=== PATIENT | female | born 1985 | race Two or more races ===

== ENCOUNTER 2020-08-14 07:50 | Inpatient (IN) | payer MEDICAID, OTHER ==
[~2020-08-14] VITALS: Ht 147.3 cm; Wt 98.3 kg
[2020-08-14] MEDS ORDERED: SODIUM CHLORIDE 0.9% 1,000 ML IV ONE ×2 (08:00)
[2020-08-14] MEDS ORDERED: InsuLIN REG 1unit/0.01ml Soln (100units/ml) IV ONE (08:15)
[2020-08-14 09:09] LABS: Albumin 2.9 g/dL (3.4-5.0); Anion Gap 26 (5-15); Blood Urea Nitrogen 47 mg/dL (7-18); Calcium 8.7 mg/dL (8.5-10.1); Carbon Dioxide 15 mmol/L (21-32); Chloride 96 mmol/L (98-107); Potassium 4.6 mmol/L (3.5-5.1); Sodium 137 mmol/L (136-145)
[2020-08-14 09:11] LABS: Basophils # (auto) 0 10 ^3/uL (0-0.2); Basophils % (auto) 0.2 % (0.0-2.0); Eosinophils # (auto) 0 10 ^3/uL (0-0.8); Hemoglobin 15.2 g/dL (12.2-16.2); Lymphocytes # (auto) 0.4 10 ^3/uL (0.4-5.4); Mean Corpuscular Hemoglobin 29.1 pg (28.0-32.0); Monocytes # (auto) 1.1 10 ^3/uL (0-1.3)
[2020-08-14 09:12] LABS: Alanine Aminotransferase 21 U/L (13-56); Alkaline Phosphatase 204 U/L (45-117); Aspartate Aminotransferase 15 U/L (15-37); Bilirubin, Total 0.5 mg/dL (0.2-1.0); Eosinophils % (auto) 0.1 % (0.0-7.0); GFR African American 23 mL/min; GFR Non-African American 19 mL/min; Hematocrit 52.4 % (36.0-46.0); Lymphocytes % (auto) 2.2 % (10.0-50.0); Mean Corpuscular Hgb Conc. 28.9 g/dL (32.0-36.0); Mean Corpuscular Volume 100.6 fL (80.0-100.0); Monocytes % (auto) 7.1 % (0.0-12.0); Neutrophils # (auto) 14.2 10 ^3/uL (1.6-8.6); Neutrophils % (auto) 90.4 % (37.0-80.0); Nucleated Red Blood Cells % 0.1 %; Platelet Count (auto) 364 10^3/uL (140-450); Red Blood Cells 5.21 10^6/uL (4.0-5.20); Red Cell Distribution Width 16.4 % (11.8-14.3); Total Protein 8.4 g/dL (6.4-8.2); White Blood Cell 15.7 10^3/uL (4.4-10.8)
[2020-08-14 09:33] LABS: Urine Bacteria FEW /hpf (None Seen); Urine Blood 1+ /uL (Negative); Urine Mucus FEW (None Seen); Urine WBC 3 /hpf (0 - 5)
[2020-08-14] MEDS ORDERED: cefTRIAXone 1GM/50ML D5W 50 ML IV ONE (09:45)
[2020-08-14 09:50] LABS: BUN/Creatinine Ratio 15.3
[2020-08-14 09:51] LABS: Glucose 1308 mg/dL (74-106)
[2020-08-14] MEDS ORDERED: DEXTROSE (50%) 50ML SYRG IV PRN (10:00)
[2020-08-14] MEDS ORDERED: InsuLIN R (HUMAN) 100 UNITS in SODIUM CHL 0.9% 99 ML IV SCH (10:00)
[2020-08-14] MEDS ORDERED: INSULIN LANTUS (GLARGINE) 1 /0.01ml (100units/ml) SC ONE (10:00)
[2020-08-14 10:27] LABS: Lactic Acid w/Reflex 3.5 mmol/L (0.4-2.0)
[2020-08-14] MEDS: ACCU-CHEK COMFORT CURVE STRIP VI SCH ×9 (10:34→22:42)
[2020-08-14] MEDS ORDERED: diphenhdrAMINE HCL 50 MG/1 ML VL IV ONE (11:15)
[2020-08-14] MEDS: InsuLIN R (HUMAN) 100 UNITS in SODIUM CHL 0.9% 99 ML IV SCH ×3 (12:02→15:00)
[2020-08-14 12:45] LABS: BUN/Creatinine Ratio 17.2; Potassium 4.6 mmol/L (3.5-5.1)
[2020-08-14] MEDS ORDERED: LORazepam 2MG/ML-1ML VIAL IV ONE (12:45)
[2020-08-14] MEDS ORDERED: NITROGLYCERIN 0.4 MG SL TAB SL PRN (13:30)
[2020-08-14] MEDS ORDERED: LACTATED RINGER'S 1,000 ML IV ONE (13:30)
[2020-08-14 14:43] LABS: Magnesium 3.5 mg/dL (1.6-2.6); Phosphorus 2.8 mg/dL (2.5-4.90)
[2020-08-14] MEDS ORDERED: NOREPINEPHRINE 8 MG/250ML KIT 250 ML IV SCH (15:00)
[2020-08-14] MEDS: NOREPINEPHRINE 8 MG/250ML KIT 250 ML IV SCH (15:15)
[2020-08-14] MEDS: LACTATED RINGER'S 1,000 ML IV SCH ×2 (15:30→21:51)
[2020-08-14] MEDS: MORPHINE SULF INJ 2 MG/ML SYRINGE 1ML IV PRN (16:33)
[2020-08-14] MEDS ORDERED: PIPERACILLIN-TAZOB 2.25GM 50 ML IV SCH (18:00)
[2020-08-14 18:43] LABS: BUN/Creatinine Ratio 16.3; Calcium 9.1 mg/dL (8.5-10.1); Potassium 3.5 mmol/L (3.5-5.1)
[2020-08-14] MEDS: PIPERACILLIN-TAZOB 2.25GM 50 ML IV SCH (20:20)
[2020-08-14] MEDS: LINEZOLID 600MG/300ML 300 ML IV SCH (22:36)
[2020-08-15] VITALS (44 sets, daily range): BP systolic 79–133; BP diastolic 55–91
[2020-08-15] MEDS: ACCU-CHEK COMFORT CURVE STRIP VI SCH ×14 (00:05→19:48)
[2020-08-15] MEDS: PIPERACILLIN-TAZOB 2.25GM 50 ML IV SCH ×4 (00:06→18:18)
[2020-08-15] MEDS ORDERED: InsuLIN REG 1unit/0.01ml Soln (100units/ml) ONE (02:23)
[2020-08-15] MEDS: LACTATED RINGER'S 1,000 ML IV SCH ×3 (05:33→20:50)
[2020-08-15 08:24] LABS: Albumin 2.4 g/dL (3.4-5.0); BUN/Creatinine Ratio 17.7; Calcium 8.6 mg/dL (8.5-10.1); Magnesium 2.4 mg/dL (1.6-2.6); Potassium 3.3 mmol/L (3.5-5.1)
[2020-08-15 08:34] LABS: Bilirubin, Total 0.3 mg/dL (0.2-1.0); Phosphorus 1.8 mg/dL (2.5-4.90); Total Protein 6.8 g/dL (6.4-8.2)
--- NOTE | 2020-08-15 09:30 | NUR ---
REPORT RECEIVED FROM WAQAR GAMBLE RN. PATIENT TO GO TO ROOM 108 ICU. PER WAREHOUSE DISTRIBUTION MANAGER AND ICU DIRECTOR PATIENT MOTHER APPROVED TO STAY WITH PATIENT DURING STAY.
[2020-08-15] MEDS: INSULIN LANTUS (GLARGINE) 1 /0.01ml (100units/ml) SC SCH (10:00)
--- NOTE | 2020-08-15 10:00 | NUR ---
Pt being admitted to ICU PAUL GONZALES admitted to ICU via gurney on engine monitor, and portable 02. Patient transferred to bed, connected to ICU monitoring and oxygen, and weighed by bedscale. Patient and mother oriented to Sneha Elias, primary RN, unit, room, bed, and unit policies regarding patient care and visiting hours. All questions and concerns addressed, patient verbalized understanding. Bed in low position, call light in reach. Will continue to monitor.
[2020-08-15] MEDS: ENOXAPARIN SOD 30 MG/0.3 ML SYRINGE SC SCH (10:43)
[2020-08-15] MEDS: LINEZOLID 600MG/300ML 300 ML IV SCH ×2 (10:45→21:59)
[2020-08-15 10:58] LABS: Basophils # (auto) 0 10 ^3/uL (0-0.2); Basophils % (auto) 0.2 % (0.0-2.0); Eosinophils # (auto) 0 10 ^3/uL (0-0.8); Hematocrit 43.6 % (36.0-46.0); Hemoglobin 14.1 g/dL (12.2-16.2); Lymphocytes # (auto) 0.8 10 ^3/uL (0.4-5.4); Lymphocytes % (auto) 5.5 % (10.0-50.0); Mean Corpuscular Hemoglobin 29.3 pg (28.0-32.0); Mean Corpuscular Hgb Conc. 32.3 g/dL (32.0-36.0); Mean Corpuscular Volume 90.7 fL (80.0-100.0); Monocytes # (auto) 0.9 10 ^3/uL (0-1.3); Monocytes % (auto) 6.4 % (0.0-12.0); Neutrophils # (auto) 12.6 10 ^3/uL (1.6-8.6); Neutrophils % (auto) 87.9 % (37.0-80.0); Red Blood Cells 4.81 10^6/uL (4.0-5.20); White Blood Cell 14.4 10^3/uL (4.4-10.8)
[2020-08-15 11:08] LABS: Platelet Count (auto) 121 10^3/uL (140-450)
[2020-08-15] MEDS: NOREPINEPHRINE 8 MG/250ML KIT 250 ML IV SCH (15:00)
[2020-08-15] MEDS: InsuLIN R (HUMAN) 100 UNITS in SODIUM CHL 0.9% 99 ML IV SCH (15:30)
[2020-08-15] MEDS ORDERED: POTASSIUM CHLORIDE 20 MEQ, LIDOCAINE 1% (LOCAL ANESTH.) 2 ML in SODIUM CHL 0.9% 100 ML IV ONE (18:30)
--- NOTE | 2020-08-15 18:32 | NUR ---
DR HAGER AT BEDSIDE TO ASSESS PATIENT AND DISCUSS PLAN OF CARE. PER MD STOP INSULIN DRIP AND START ON Q4H MODERATE SCALE. PER MD MAY START PATIENT ON DIET, MD MADE AWARE OF PATIENTS POTASSIUM ALL ORDERS NOTED IN CHART. PER MD IF LABS AT 2200 ARE GOOD PATIENT CAN DOWNGRADE TO TELEMETRY FLOOR.
[2020-08-15] MEDS ORDERED: DEXTROSE (50%) 50ML SYRG IV PRN (19:15)
--- NOTE | 2020-08-15 19:36 | NUR ---
OPENING NOTE RECEIVED REPORT AND ASSUMED CARE OF PT. PT IS RESTING IN BED WITH TWO FAMILY MEMBERS AT BEDSIDE. LR RUNNING AT 125 ML/HR. NASAL CANNULA APPLIED AT 2L. VITAL SIGNS STABLE WITH NO DISTRESS OBSERVED. WOLFF CATHETER IN PLACE AND DRAINING APPROPRIATELY. EDUCATED PT AND FAMILY ON PLAN OF CARE FOR THIS EVENING, MEDICATIONS, AND DISEASE PROCESS. VERBALIZED UNDERSTANDING. WILL CONTINUE TO MONITOR AND ASSESS PT.
[2020-08-15] MEDS: ONDANSETRON HCL 4 MG/2 ML VIAL IV PRN (19:46)
[2020-08-15] MEDS: InsuLIN REG 1unit/0.01ml Soln (100units/ml) SC SCH ×2 (19:48→23:50)
[2020-08-15 22:33] LABS: BUN/Creatinine Ratio 18.5; Potassium 3.4 mmol/L (3.5-5.1)
--- NOTE | 2020-08-15 23:30 | NUR ---
TELE BED ASSIGNMENT RECEIVED PT GOING TO ROOM 202. CALLED FOR TELEMETRY BOX.
[2020-08-16] VITALS (8 sets, daily range): BP systolic 91–113; BP diastolic 54–67
[2020-08-16] MEDS: ACCU-CHEK COMFORT CURVE STRIP VI SCH ×6 (00:09→20:00)
[2020-08-16] MEDS: PIPERACILLIN-TAZOB 2.25GM 50 ML IV SCH ×2 (00:10→05:47)
--- NOTE | 2020-08-16 01:14 | NUR ---
REPORT GIVEN TO PARIS GRAHAM. Addendum: 08/16/20 at 0153 by TODD FIGUEROA RN SANTOS LAZCANO.
[2020-08-16] MEDS: MORPHINE SULF INJ 2 MG/ML SYRINGE 1ML IV PRN (01:34)
--- NOTE | 2020-08-16 01:53 | NUR ---
MADE SANTOS LAZCANO AWARE THAT MORPHINE WAS GIVEN FOR CHEST PAIN AND TO REASSESS WHEN PT ARRIVED TO ROOM 202. PT WAS TRANSFERRED TO 202 BY RNs ZACHARY AND BALBINA ON TELE MONITOR 41 WITH STABLE VS AND NO DISTRESS NOTED. ALL BELONGINGS AND FAMILY WITH PT.
--- NOTE | 2020-08-16 01:55 | NUR ---
TRANSFER TO TELE Assumed care of patient who is mentally delayed, alert and oriented follows all commands appropriately. Currently on 2L NC with no S/S of distress or SOB noted at this time. Patient is attached to tele monitor #41 running sinus rhythm @94bpm. Booth is draining pink tinged urine to gravity, bag hanging to the lowest point of the bed, free of kinks and draining. Right EJ IV is patent connected to LR running @100mls/hr. Patient's aunt and cousin are bedside and POC discussed with family and patient, all questions answered and family verbalized understanding. Family oriented to the room and hospital policies. Bed in lowest position, locked, side rails up x3. Call light within reach, patient and family encouraged to call for assistance as needed. Will continue to monitor Q1hr/PRN.
--- NOTE | 2020-08-16 01:56 | NUR ---
CHEST PAIN REASSESSED Before transporting from ICU to TELE patient complained of chest pain, [place] RN administered 2mg Morphine. Patient was reassessed upon arrival for chest pain, patient denies any pain at this time. Vital signs are as followed: HR 89 BP 97/77 RR20 TEMP 98.7 O2 94 on 2L. Will continue to monitor.
[2020-08-16] MEDS: InsuLIN REG 1unit/0.01ml Soln (100units/ml) SC SCH ×5 (03:54→20:00)
[2020-08-16] MEDS: LACTATED RINGER'S 1,000 ML IV SCH (05:30)
[2020-08-16 05:55] LABS: Basophils # (auto) 0 10 ^3/uL (0-0.2); Basophils % (auto) 0.2 % (0.0-2.0); Eosinophils # (auto) 0 10 ^3/uL (0-0.8); Eosinophils % (auto) 0.1 % (0.0-7.0); Hematocrit 37.6 % (36.0-46.0); Hemoglobin 12.2 g/dL (12.2-16.2); Lymphocytes % (auto) 8.6 % (10.0-50.0); Mean Corpuscular Hgb Conc. 32.4 g/dL (32.0-36.0); Mean Corpuscular Volume 89.4 fL (80.0-100.0); Monocytes # (auto) 0.7 10 ^3/uL (0-1.3); Monocytes % (auto) 6.2 % (0.0-12.0); Neutrophils # (auto) 9.9 10 ^3/uL (1.6-8.6); Neutrophils % (auto) 84.9 % (37.0-80.0); Platelet Count (auto) 62 10^3/uL (140-450); Red Blood Cells 4.21 10^6/uL (4.0-5.20); White Blood Cell 11.6 10^3/uL (4.4-10.8)
[2020-08-16 06:30] LABS: Potassium 3.5 mmol/L (3.5-5.1)
[2020-08-16 06:38] LABS: BUN/Creatinine Ratio 18.9; Bilirubin, Total 0.5 mg/dL (0.2-1.0); Calcium 8.2 mg/dL (8.5-10.1); Total Protein 5.8 g/dL (6.4-8.2)
--- NOTE | 2020-08-16 07:00 | NUR ---
Opening Shift Note Assumed care of patient, awake and alert eating breakfast upon entering thee room. Mother at bedside feeding the patient. No S/S of distress/SOB. Pain reported in the abdominal area. Heat packs provided. Patient is A/O x 2. Booth in place draining clear yellow urine. Triple lumen flushed and reinforced with tegaderm. Instructed on POC and to call for assist PRN. Mother verbalized understanding. Bed is in lowest position and the call light is within reach of the patient. Will continue to monitor for changes Q1hr and PRN.
--- NOTE | 2020-08-16 07:26 | NUR ---
CARE ENDORSED TO SHARITA GRAHAM
--- NOTE | 2020-08-16 10:32 | NUR ---
WOUND CARE NOTE: WOUND CARE IN TO SEE PATIENT PER WOUND CARE REQUEST. PATIENT ADMITTED TO [facility] FOR [facility]KA. BEDSIDE NURSE NOTED SKIN INTEGRITY ISSUE UPON ADMISSION. PHOTOGRAPH TAKEN AT THAT TIME FOR REFERENCE. PATIENT TIMBO SCORE IS 15. PATIENT NOTED TO HAVE INTERTRIGINOUS RASH TO ABDOMINAL FOLD. ANTIFUNGAL OINTMENT APPLIED TO IRRITATED AREA. RECOMMEND: FREQUENT Q2HOUR REPOSITIONING CONDITION PERMITS. REDISTRIBUTE PRESSURE UTILIZING PILLOWS AND WEDGES. BID/PRN APPLICATION OF ANTIFUNGAL OINTMENT. SKIN/WOUND CARE PLAN. CONTINUED MONITORING BY WOUND CARE TEAM. Addendum: 08/16/20 at 1418 by TOMER THOMSON RN RN Amended: Links added.
--- NOTE | 2020-08-16 11:15 | NUR ---
Dr. Medina at bedside Dr. Medina at bedside discussing the POC with the patient and family. All questions and concerns were addressed at this time. Family verbalized understanding.
[2020-08-16] MEDS: SUCRALFATE 1 GM/10 ML ORAL SUSP PO SCH ×3 (12:00→21:59)
[2020-08-16] MEDS: PANTOPRAZOLE 40 MG/10 ML VIAL INJ IV SCH ×2 (12:00→21:59)
[2020-08-16] MEDS: ENOXAPARIN SOD 30 MG/0.3 ML SYRINGE SC SCH (12:01)
[2020-08-16] MEDS: INSULIN LANTUS (GLARGINE) 1 /0.01ml (100units/ml) SC SCH (12:12)
[2020-08-16] MEDS ORDERED: cefTRIAXone 1GM/50ML D5W 50 ML IV ONE (13:00)
--- NOTE | 2020-08-16 14:15 | NUR ---
Patient to radiology Patient transported off the unit to radiology by wheelchair for abdominal CT.
--- NOTE | 2020-08-16 14:15 | NUR ---
Skin assessment Vagina and surrounding tissue appears red and irritated upon assessment. Pictures taken. Area was clean and linen was changed. Patient appeared to be uncomfortable and in discomfort during the assessment and cleaning. Will continue to monitor.
--- NOTE | 2020-08-16 17:05 | NUR ---
Dr. Martinez at bedside Dr. Martinez at bedside discussing the POC with patient's mother including CT results. New ordered received and carried out accordingly.
[2020-08-16] MEDS: HYDROmorphone HCL 2 MG/ML VL IV PRN ×2 (17:49→23:22)
[2020-08-16] MEDS: metroNIDAZOLE 500MG/100ML 100 ML IV SCH ×2 (18:50→21:59)
--- NOTE | 2020-08-16 20:31 | NUR ---
[facility] due to patient being administered recently by day rn.
--- NOTE | 2020-08-16 21:00 | NUR ---
Partial bed linen change due to patient having large BM, SKILLS INSTRUCTOR at bedside. one family member at bedside.
--- NOTE | 2020-08-16 22:30 | NUR ---
Only 1 family member to stay at bedside. patient has aunt at bedside. patient is resting without any distress at this time. Addendum: 08/17/20 at 0244 by Leif Nguyen RN Educated patient that 1 family member is permitted at a time to stay with patient. family member verbally acknowledge education given.
[2020-08-17] MEDS: ACCU-CHEK COMFORT CURVE STRIP VI SCH ×6 (00:45→20:36)
[2020-08-17] MEDS: InsuLIN REG 1unit/0.01ml Soln (100units/ml) SC SCH ×6 (00:47→21:40)
[2020-08-17 05:40] VITALS: BP 111/60
[2020-08-17 05:59] LABS: Basophils # (auto) 0 10 ^3/uL (0-0.2); Basophils % (auto) 0.2 % (0.0-2.0); Eosinophils # (auto) 0 10 ^3/uL (0-0.8); Eosinophils % (auto) 0.2 % (0.0-7.0); Hemoglobin 11.5 g/dL (12.2-16.2); Lymphocytes # (auto) 1.2 10 ^3/uL (0.4-5.4); Lymphocytes % (auto) 12.6 % (10.0-50.0); Mean Corpuscular Hemoglobin 28.9 pg (28.0-32.0); Mean Corpuscular Hgb Conc. 31.9 g/dL (32.0-36.0); Mean Corpuscular Volume 90.6 fL (80.0-100.0); Monocytes # (auto) 0.5 10 ^3/uL (0-1.3); Monocytes % (auto) 5.4 % (0.0-12.0); Neutrophils # (auto) 7.6 10 ^3/uL (1.6-8.6); Neutrophils % (auto) 81.6 % (37.0-80.0); Nucleated Red Blood Cells % 0.1 %; Platelet Count (auto) 49 10^3/uL (140-450); Red Blood Cells 3.98 10^6/uL (4.0-5.20); White Blood Cell 9.3 10^3/uL (4.4-10.8)
[2020-08-17] MEDS: SUCRALFATE 1 GM/10 ML ORAL SUSP PO SCH ×4 (06:08→20:37)
[2020-08-17] MEDS: metroNIDAZOLE 500MG/100ML 100 ML IV SCH ×3 (06:08→20:37)
[2020-08-17 06:19] LABS: Calcium 7.7 mg/dL (8.5-10.1); Potassium 3.5 mmol/L (3.5-5.1)
[2020-08-17 06:21] LABS: BUN/Creatinine Ratio 18.6
--- NOTE | 2020-08-17 07:10 | NUR ---
Med withheld 08/16/2020 Mid day Insulin dosage was not given yesterday due to it being passed due once it was recognized. made aware.
--- NOTE | 2020-08-17 07:30 | NUR ---
Opening Shift Note Assumed care of patient, sleeping upon entering the room. No S/S of distress/SOB or pain. NC in place with 2L. Botoh draining well. Mother at bedside. Instructed mother to call for assist PRN. Bed is in lowest position. Will continue to monitor for changes Q1hr and PRN.
--- NOTE | 2020-08-17 07:41 | NUR ---
provided report to day rn, and endorsed to rn of pharmacy wanting rn to notify MD if they want to continue with lovenox order due to platelets trending down and current plt value is 49.
[2020-08-17 09:00] VITALS: BP 96/53
--- NOTE | 2020-08-17 09:15 | NUR ---
Dr. Medina at bedside Dr. Medina at bedside discussing the POC with the patient's mother. All questions and concerns were answered at this time. Patient cleaned and a full linen change was completed. Skin assessed. No new wounds. Buttocks have pimple like scabs on both sides but show no signs of infection or skin breakdown. Patient sitting in bedside chair.
[2020-08-17 09:36] LABS: Amylase 44 U/L (25-115); Lipase 360 U/L (73-393)
[2020-08-17] MEDS: ENOXAPARIN SOD 30 MG/0.3 ML SYRINGE SC SCH (10:00)
--- NOTE | 2020-08-17 10:00 | NUR ---
Med held Lovenox held due to low platelet count 49. aware.
[2020-08-17] MEDS: cefTRIAXone 1GM/50ML D5W 50 ML IV SCH (10:30)
[2020-08-17] MEDS: PANTOPRAZOLE 40 MG/10 ML VIAL INJ IV SCH ×2 (10:30→20:37)
[2020-08-17] MEDS: INSULIN LANTUS (GLARGINE) 1 /0.01ml (100units/ml) SC SCH (10:40)
--- NOTE | 2020-08-17 11:00 | NUR ---
WOUND CARE NOTE: PATIENT NOTED TO HAVE NEW SKIN/WOUND CONCERN UPON ASSESSMENT BY BEDSIDE NURSE, WOUND PHOTO TAKEN AT TIME OF ASSESSMENT BY BEDSIDE NURSE FOR REFERENCE. PATIENT HAS CURRENT TIMBO SCORE OF 18. MOTHER IS AT BEDSIDE. PATIENT APPEARS TO HAVE MASD/INTERTRIGO TO LABIAL SKIN. THERE IS WHITE DRAINAGE NOTED, THAT COULD BE YEAST. ADVISED BEDSIDE NURSE TO APPLY ANTIFUNGAL CLEAR BARRIER FILM TO AREA. IF NO IMPROVEMENT SEEN, PATIENT MAY BENEFIT FROM ANTIFUNGAL CREAM FOR MONILIA. WOUND CARE TEAM WILL CONTINUE TO MONITOR. Addendum: 08/17/20 at 1726 by Naomi Quintero RN Amended: Links added.
[2020-08-17] MEDS: D5W/SOD CHL 0.45%/KCL 20MEQ 1,000 ML IV SCH ×2 (11:16→20:36)
--- NOTE | 2020-08-17 11:17 | NUR ---
Nutrition Assessment Est energy needs 0474-7982 kcal (14-18 kcal/kg BW 92.4kg) Est protein needs 43-56g (1-1.3g/kg IBW 43kg) Will reassess prn Addendum: 08/17/20 at [address] Amended: Links added.
[2020-08-17 13:00] VITALS: BP 100/53
[2020-08-17] MEDS ORDERED: MICONAZOLE NITRATE 2 % VAGINAL CREAM 45 GM PV SCH (13:30)
[2020-08-17] MEDS: HYDROmorphone HCL 2 MG/ML VL IV PRN (15:13)
[2020-08-17 17:00] VITALS: BP 98/54
[2020-08-17] MEDS: ONDANSETRON HCL 4 MG/2 ML VIAL IV PRN (20:37)
[2020-08-17] MEDS: MICONAZOLE NITRATE 2 % VAGINAL CREAM 45 GM PV SCH (20:37)
[2020-08-17] MEDS: MORPHINE SULF INJ 2 MG/ML SYRINGE 1ML IV PRN (20:37)
[2020-08-17 21:53] VITALS: BP 103/63
--- NOTE | 2020-08-18 | NUR ---
PATIENT IS ASLEEP. ATTEMPTED ACCU CHECK ORDERED, BUT FAMILY AT BEDSIDE REQUESTED TO DELAY THE BLOOD SUGAR CHECK FOR NOW AND WILL DO IT LATER. FAMILY IS AWARE OF ALL THE CONSEQUENCES.
--- NOTE | 2020-08-18 01:39 | NUR ---
MADE CHARGE NURSE AWARE THAT PATIENT'S MOM IS COMING UP TO REPLACE A FAMILY MEMBER WHO IS IN THE ROOM RIGHT NOW. NOTED.
[2020-08-18] MEDS: ONDANSETRON HCL 4 MG/2 ML VIAL IV PRN (03:14)
[2020-08-18] MEDS: MORPHINE SULF INJ 2 MG/ML SYRINGE 1ML IV PRN (03:14)
[2020-08-18] MEDS: ACCU-CHEK COMFORT CURVE STRIP VI SCH ×7 (03:15→23:50)
[2020-08-18] MEDS: InsuLIN REG 1unit/0.01ml Soln (100units/ml) SC SCH ×7 (03:16→23:51)
[2020-08-18 05:32] LABS: Basophils # (auto) 0 10 ^3/uL (0-0.2); Basophils % (auto) 0.5 % (0.0-2.0); Eosinophils # (auto) 0 10 ^3/uL (0-0.8); Eosinophils % (auto) 0.4 % (0.0-7.0); Hematocrit 33.6 % (36.0-46.0); Lymphocytes # (auto) 1.1 10 ^3/uL (0.4-5.4); Lymphocytes % (auto) 13.2 % (10.0-50.0); Mean Corpuscular Hemoglobin 29.7 pg (28.0-32.0); Mean Corpuscular Hgb Conc. 32.7 g/dL (32.0-36.0); Mean Corpuscular Volume 90.9 fL (80.0-100.0); Monocytes # (auto) 0.5 10 ^3/uL (0-1.3); Monocytes % (auto) 5.7 % (0.0-12.0); Neutrophils # (auto) 6.7 10 ^3/uL (1.6-8.6); Neutrophils % (auto) 80.2 % (37.0-80.0); Nucleated Red Blood Cells % 0.1 %; Platelet Count (auto) 57 10^3/uL (140-450); White Blood Cell 8.4 10^3/uL (4.4-10.8)
[2020-08-18 05:38] VITALS: BP 92/57
[2020-08-18] MEDS: D5W/SOD CHL 0.45%/KCL 20MEQ 1,000 ML IV SCH (05:49)
[2020-08-18] MEDS: SUCRALFATE 1 GM/10 ML ORAL SUSP PO SCH ×4 (05:50→21:37)
[2020-08-18] MEDS: metroNIDAZOLE 500MG/100ML 100 ML IV SCH ×3 (05:50→21:35)
[2020-08-18 05:56] LABS: Potassium 3.4 mmol/L (3.5-5.1)
[2020-08-18 06:05] LABS: Albumin 1.7 g/dL (3.4-5.0); BUN/Creatinine Ratio 16.7; Bilirubin, Total 0.3 mg/dL (0.2-1.0); Calcium 7.6 mg/dL (8.5-10.1); Total Protein 5.3 g/dL (6.4-8.2)
--- NOTE | 2020-08-18 07:35 | NUR ---
OPENING NOTE Assumed care of patient from NOC RN. Patient is AOX3-4, no s/s of distress noted. Bed is in lowest locked position, call light within reach, and side rails up x2. Patient noted to be on 2L via nasal cannula. Mother present at bedside with permission by house sup. Will continue to monitor.
[2020-08-18] MEDS: cefTRIAXone 1GM/50ML D5W 50 ML IV SCH (08:12)
[2020-08-18 08:37] VITALS: BP 84/49
--- NOTE | 2020-08-18 08:45 | NUR ---
physician rounding Dr. Medina at bedside. MD updated patient and family on plan of care, new orders received, will follow through.
[2020-08-18] MEDS ORDERED: POTASSIUM CHLORIDE 20 MEQ, LIDOCAINE 1% (LOCAL ANESTH.) 2 ML in SODIUM CHL 0.9% 100 ML IV ONE (09:00)
[2020-08-18 09:41] VITALS: BP 98/54
[2020-08-18] MEDS: PANTOPRAZOLE 40 MG/10 ML VIAL INJ IV SCH ×2 (10:51→21:37)
[2020-08-18] MEDS: INSULIN LANTUS (GLARGINE) 1 /0.01ml (100units/ml) SC SCH (11:04)
[2020-08-18] MEDS: D5W/SOD CHL 0.2% 1,000 ML IV SCH ×2 (11:28→17:52)
[2020-08-18 13:00] VITALS: BP 97/51
[2020-08-18] MEDS: Glucerna Carbsteady SHAKE Vanilla 8oz PO SCH ×2 (13:07→18:25)
[2020-08-18 16:34] VITALS: BP 117/64
--- NOTE | 2020-08-18 19:20 | NUR ---
end of shift note Endorsed care of patient to NOC RN. No s/s of distress noted. Patients family at bedside.
[2020-08-18] MEDS: MICONAZOLE NITRATE 2 % VAGINAL CREAM 45 GM PV SCH (21:37)
[2020-08-19] MEDS: ONDANSETRON HCL 4 MG/2 ML VIAL IV PRN (00:56)
[2020-08-19] MEDS: HYDROmorphone HCL 2 MG/ML VL IV PRN ×3 (00:56→21:07)
[2020-08-19 05:14] VITALS: BP 96/55
[2020-08-19] MEDS: ACCU-CHEK COMFORT CURVE STRIP VI SCH ×5 (05:15→22:58)
[2020-08-19] MEDS: InsuLIN REG 1unit/0.01ml Soln (100units/ml) SC SCH ×5 (05:16→22:59)
[2020-08-19 05:32] LABS: Basophils # (auto) 0 10 ^3/uL (0-0.2); Basophils % (auto) 0.3 % (0.0-2.0); Eosinophils # (auto) 0.1 10 ^3/uL (0-0.8); Eosinophils % (auto) 1.1 % (0.0-7.0); Hemoglobin 10.6 g/dL (12.2-16.2); Lymphocytes # (auto) 1.5 10 ^3/uL (0.4-5.4); Lymphocytes % (auto) 18.6 % (10.0-50.0); Mean Corpuscular Hgb Conc. 32.1 g/dL (32.0-36.0); Mean Corpuscular Volume 90.3 fL (80.0-100.0); Monocytes # (auto) 0.7 10 ^3/uL (0-1.3); Monocytes % (auto) 8.9 % (0.0-12.0); Neutrophils # (auto) 5.8 10 ^3/uL (1.6-8.6); Neutrophils % (auto) 71.1 % (37.0-80.0); Nucleated Red Blood Cells % 0.1 %; Platelet Count (auto) 81 10^3/uL (140-450); Red Blood Cells 3.65 10^6/uL (4.0-5.20); Red Cell Distribution Width 15.3 % (11.8-14.3); White Blood Cell 8.2 10^3/uL (4.4-10.8)
[2020-08-19] MEDS: metroNIDAZOLE 500MG/100ML 100 ML IV SCH (05:32)
[2020-08-19 05:51] LABS: Albumin 1.5 g/dL (3.4-5.0); Calcium 7.3 mg/dL (8.5-10.1); Potassium 3.1 mmol/L (3.5-5.1)
[2020-08-19 05:55] LABS: BUN/Creatinine Ratio 11.1; Bilirubin, Total 0.3 mg/dL (0.2-1.0); Total Protein 5.2 g/dL (6.4-8.2)
[2020-08-19] MEDS: D5W/SOD CHL 0.2% 1,000 ML IV SCH (06:54)
[2020-08-19] MEDS: SUCRALFATE 1 GM/10 ML ORAL SUSP PO SCH ×4 (06:54→21:07)
[2020-08-19] MEDS: Glucerna Carbsteady SHAKE Vanilla 8oz PO SCH ×3 (08:18→18:30)
[2020-08-19] MEDS: cefTRIAXone 1GM/50ML D5W 50 ML IV SCH (08:20)
[2020-08-19 08:50] VITALS: BP 92/50
--- NOTE | 2020-08-19 09:40 | NUR ---
Physician rounding Dr. Martinez at nurses station. Updated MD on patient status, per NOC RN patient vomited x1, yellow emesis last night. This morning patient complaint of abdominal pain, and per patients mother patient only eating small bites of food. Per MD patient will be placed on clear liquid as tolerated and if patient cannot tolerate PO intake to place NPO. Will continue care, will follow through.
[2020-08-19] MEDS: PANTOPRAZOLE 40 MG/10 ML VIAL INJ IV SCH ×2 (10:43→21:06)
[2020-08-19] MEDS: INSULIN LANTUS (GLARGINE) 1 /0.01ml (100units/ml) SC SCH (10:44)
[2020-08-19] MEDS: D5W/ SOD CHL 0.9%/KCL 20MEQ 1,000 ML IV SCH (11:15)
--- NOTE | 2020-08-19 11:25 | NUR ---
Nutrition Followup Notes Wt: 95.1 kg Pt was with MD at bedside. per records pt with pancreatitis. pt unable to tole Full liq diet yesterday due to N.V per records. pt is currently on clear liq diet with adequate PO of 75% x 2 Est energy needs 0731-8962 kcal (14-18 kcal/kg BW 92.4kg) Est protein needs 43-56g (1-1.3g/kg IBW 43kg) Will reassess prn LABS: GLU 161 H CA 7.3 L, ALB 1.5 L GI: Pt had 4 BM yesterday per RN doc. BS: 18 mod risk. Refer to wound assessment report for full details. PES: Obesity aeb pt with a BMI of 42.6kg/m2 r/t caloric intake in excess of needs Partially resolved: Inadequate oral intake aeb pt with NPO diet order r/t current medical condition Comments: Will continue to monitor PO status, skin status, pertinent labs and weight trends. Will f/u in 2-3 days Rec: 1) Advance diet as medically feasible. 2) Consider ensure clear 1 carton instead of Glucerna as pt on clear liq. 3) consider prostat 1 packet bid. 4) refer pt to [facility] on DC 3) Continue current plan of care
[2020-08-19 13:00] VITALS: BP 98/57
--- NOTE | 2020-08-19 13:30 | NUR ---
The patient is a 34-year-old female, patient has down syndrome, according to the patient mother, the patient mental status is compromised with confusion in the morning time per mother (Sahara) statement. Patient was unable to speak (patient is sedated), patient mother at bedside. Initial assessment was conducted with mother, who is the primary ruby on rails software developer of the patient. Per patient mother, patient is unemployed. Per patient mother, patient ambulates with a walker. Per patient mother, the mother is requesting home health assistance (with bathing care) and home physical therapy for ambulation. Per patient mother, the patient parents are her support system. Discharge planning: SW will request home health services including home physical therapy. Addendum: 08/19/20 at 1331 by STEVE RUIZ SS Amended: Links added.
[2020-08-19] MEDS ORDERED: DEXTROSE (50%) 50ML SYRG IV PRN (15:00)
[2020-08-19 16:35] VITALS: BP 96/47
--- NOTE | 2020-08-19 19:00 | NUR ---
end of shift note Endorsed care to NOC RN. No s/s of distress noted.
--- NOTE | 2020-08-19 19:45 | NUR ---
OPENING SHIFT NOTE Pt is resting in bed with her Aunt at the bedside. No s/s of any distress noted at this time. POC discussed with pt and her aunt and both verbalize understanding. Bed is low, wheels are locked, and call light is with in reach. Side rails up x2 and bed alarm set for pt safety.
[2020-08-19 22:00] VITALS: BP 99/63
[2020-08-19] MEDS: MICONAZOLE NITRATE 2 % VAGINAL CREAM 45 GM PV SCH (22:00)
[2020-08-20] MEDS: D5W/ SOD CHL 0.9%/KCL 20MEQ 1,000 ML IV SCH (03:00)
[2020-08-20] MEDS: SUCRALFATE 1 GM/10 ML ORAL SUSP PO SCH ×4 (05:43→21:20)
[2020-08-20] MEDS: ACCU-CHEK COMFORT CURVE STRIP VI SCH ×4 (05:44→21:21)
[2020-08-20] MEDS: InsuLIN REG 1unit/0.01ml Soln (100units/ml) SC SCH ×4 (05:45→22:00)
[2020-08-20 05:50] VITALS: BP 96/54
[2020-08-20 06:46] LABS: Calcium 6.9 mg/dL (8.5-10.1); Potassium 3.2 mmol/L (3.5-5.1)
[2020-08-20 06:48] LABS: BUN/Creatinine Ratio 8.1
[2020-08-20] MEDS: Glucerna Carbsteady SHAKE Vanilla 8oz PO SCH ×3 (08:00→18:12)
--- NOTE | 2020-08-20 08:00 | NUR ---
Opening Shift Note Assumed care of patient, comfortaby resting, breath sounds even and unlabored. No S/S of distress/SOB or pain. Bed at lowest locked position and call light within reach. Mother at bedside, updated on plan of care. Bed at lowest locked position and call light within reach. Will continue to monitor for changes Q1hr and PRN
[2020-08-20 08:33] VITALS: BP 91/45
[2020-08-20] MEDS: PANTOPRAZOLE 40 MG/10 ML VIAL INJ IV SCH ×2 (09:21→21:20)
[2020-08-20] MEDS: INSULIN LANTUS (GLARGINE) 1 /0.01ml (100units/ml) SC SCH (11:12)
--- NOTE | 2020-08-20 11:13 | NUR ---
Attempted PT treatment, pt requested PM treatment.
[2020-08-20 12:39] VITALS: BP 98/44
[2020-08-20] MEDS ORDERED: POTASSIUM EFFERVESENT TAB 25 MEQ PO ONE (15:00)
[2020-08-20] MEDS: LACTATED RINGER'S 1,000 ML IV SCH (15:56)
[2020-08-20 16:28] VITALS: BP 90/38
--- NOTE | 2020-08-20 16:40 | NUR ---
Pain Patient is complaining of abdominal pain. Will medicate per MD orders.
[2020-08-20] MEDS: HYDROmorphone HCL 2 MG/ML VL IV PRN (16:46)
--- NOTE | 2020-08-20 18:47 | NUR ---
Closing note Patient is comfortably resting in bed on 2L NC, respirations even and unlabored. No c/o pain, no s/s of distress noted/stated. Bed at lowest locked position and call light within reach. Family/sitter at bedside for safety. Will endorse care to NOC RN.
--- NOTE | 2020-08-20 19:05 | NUR ---
Opening Shift Note Assumed care of patient, awake and alert. Aunt at bedside, charge nurse aware family staying with patient. No S/S of distress/SOB or pain. Bed in lowest locked position, side rails up x2, call light within reach. Instructed on POC and to call for assist PRN, will continue to monitor for changes Q1hr and PRN.
--- NOTE | 2020-08-20 21:00 | NUR ---
Redness and superficial peeling skin noted to patient's right underarm area. Wound care already monitoring patient. Photographs taken with wound care camera and proper wound care documentation filled out and left in wound care's box. Will continue care.
[2020-08-20 22:00] VITALS: BP 91/47
--- NOTE | 2020-08-20 22:00 | NUR ---
Incentive spirometer brought to bedside, patient and mother educated on use, both verbalized understanding. Requested demonstration from patient, patient's mother requested to have patient try "in the morning, she's very tired right now". Patient and family educated on risks and benefits, both verbalized understanding. Will continue care.
[2020-08-20] MEDS: PIPERACILLIN-TAZO 4.5GM 100 ML IV SCH (22:08)
[2020-08-20] MEDS: MICONAZOLE NITRATE 2 % VAGINAL CREAM 45 GM PV SCH (22:09)
[2020-08-21 05:04] LABS: Basophils # (auto) 0 10 ^3/uL (0-0.2); Basophils % (auto) 0.4 % (0.0-2.0); Eosinophils # (auto) 0.1 10 ^3/uL (0-0.8); Eosinophils % (auto) 1.8 % (0.0-7.0); Hematocrit 30.8 % (36.0-46.0); Hemoglobin 10.3 g/dL (12.2-16.2); Lymphocytes # (auto) 1.4 10 ^3/uL (0.4-5.4); Lymphocytes % (auto) 22.4 % (10.0-50.0); Mean Corpuscular Hgb Conc. 33.4 g/dL (32.0-36.0); Mean Corpuscular Volume 89.7 fL (80.0-100.0); Monocytes # (auto) 0.7 10 ^3/uL (0-1.3); Neutrophils # (auto) 3.9 10 ^3/uL (1.6-8.6); Neutrophils % (auto) 63.4 % (37.0-80.0); Nucleated Red Blood Cells % 0.1 %; Platelet Count (auto) 141 10^3/uL (140-450); Red Blood Cells 3.43 10^6/uL (4.0-5.20); Red Cell Distribution Width 15.1 % (11.8-14.3); White Blood Cell 6.1 10^3/uL (4.4-10.8)
[2020-08-21 05:25] LABS: BUN/Creatinine Ratio 7.7; Calcium 7.1 mg/dL (8.5-10.1); Potassium 3.5 mmol/L (3.5-5.1)
[2020-08-21 05:30] VITALS: BP 100/65
[2020-08-21] MEDS: SUCRALFATE 1 GM/10 ML ORAL SUSP PO SCH ×4 (06:45→23:01)
[2020-08-21] MEDS: ACCU-CHEK COMFORT CURVE STRIP VI SCH ×4 (06:45→22:00)
[2020-08-21] MEDS: PIPERACILLIN-TAZO 4.5GM 100 ML IV SCH ×3 (06:45→23:03)
--- NOTE | 2020-08-21 06:46 | NUR ---
Closing Note Patient lying in bed, awake and alert. No s/s of distress. Call light within reach. Will endorse care to dayshift RN.
[2020-08-21] MEDS: InsuLIN REG 1unit/0.01ml Soln (100units/ml) SC SCH ×4 (07:09→23:41)
--- NOTE | 2020-08-21 08:00 | NUR ---
Opening Shift Note Assumed care of patient, comfortably resting, breath sounds even and unlabored. No S/S of distress/SOB or pain. Bed at lowest locked position and call light within reach. Patient's aunt at bedside, updated on plan of care. Bed at lowest locked position and call light within reach. Will continue to monitor for changes Q1hr and PRN
[2020-08-21 08:38] VITALS: BP 95/56
--- NOTE | 2020-08-21 09:50 | NUR ---
BM Patient had a small bowel movement. Cleansed patient and changed bed linen. Patient tolerated well.
[2020-08-21] MEDS: PANTOPRAZOLE 40 MG/10 ML VIAL INJ IV SCH ×2 (10:31→23:01)
[2020-08-21] MEDS: Glucerna Carbsteady SHAKE Vanilla 8oz PO SCH ×3 (10:31→18:00)
[2020-08-21] MEDS: INSULIN LANTUS (GLARGINE) 1 /0.01ml (100units/ml) SC SCH (10:33)
[2020-08-21] MEDS: LACTATED RINGER'S 1,000 ML IV SCH (11:00)
[2020-08-21 12:30] VITALS: BP 109/62
--- NOTE | 2020-08-21 12:53 | NUR ---
Nutrition Followup Notes Wt: 99.8 kg Pt was resting with mother at bedside at time of rounds. Pt was not tolerating diet, tolerating better now. Pt with diet advanced to CCHO 45g, 2g Na pureed today per MD note. Pt was consuming 62.5% of full liquid diet x 2 days per RN note. Will monitor pt tolerance of new diet. Pt is also with GLUC TID Est energy needs 3683-7866 kcal (14-18 kcal/kg BW 92.4kg) Est protein needs 43-56g (1-1.3g/kg IBW 43kg) Will reassess prn LABS: GLU 146H, Ca 7.1L, BUN 6L, Alb 1.5L GI: Pt had 5 BMs 08/21 per RN doc. BS: 16 mod risk. Refer to wound assessment report for full details. PES: Obesity aeb pt with a BMI of 42.6kg/m2 r/t caloric intake in excess of needs Partially resolved: Inadequate oral intake aeb pt with NPO diet order r/t current medical condition Comments: Will continue to monitor PO intake, skin status, pertinent labs and weight trends. Will f/u in 3-5 days Rec: 1) Continue diet as medically feasible and as tolerated. 2) consider prostat 1 packet bid. 3) refer pt to [facility]PD on DC 4) Continue current plan of care
[2020-08-21 16:38] VITALS: BP 97/67
[2020-08-21] MEDS: glipiZIDE 5 MG TAB PO SCH (17:05)
[2020-08-21 22:00] VITALS: BP 92/57
[2020-08-21] MEDS: MICONAZOLE NITRATE 2 % VAGINAL CREAM 45 GM PV SCH (23:02)
[2020-08-21] MEDS: NYSTATIN TOPICAL POWDER 15GM TOP SCH (23:03)
[2020-08-22 05:04] LABS: Basophils # (auto) 0 10 ^3/uL (0-0.2); Basophils % (auto) 0.8 % (0.0-2.0); Eosinophils # (auto) 0.1 10 ^3/uL (0-0.8); Eosinophils % (auto) 1.8 % (0.0-7.0); Hematocrit 30.5 % (36.0-46.0); Hemoglobin 10.1 g/dL (12.2-16.2); Lymphocytes # (auto) 1.1 10 ^3/uL (0.4-5.4); Lymphocytes % (auto) 22.3 % (10.0-50.0); Mean Corpuscular Hemoglobin 29.9 pg (28.0-32.0); Mean Corpuscular Hgb Conc. 33.2 g/dL (32.0-36.0); Mean Corpuscular Volume 90.1 fL (80.0-100.0); Monocytes # (auto) 0.7 10 ^3/uL (0-1.3); Monocytes % (auto) 14.5 % (0.0-12.0); Neutrophils % (auto) 60.6 % (37.0-80.0); Platelet Count (auto) 175 10^3/uL (140-450); Red Blood Cells 3.38 10^6/uL (4.0-5.20); Red Cell Distribution Width 15.1 % (11.8-14.3)
[2020-08-22 05:23] LABS: Albumin 1.4 g/dL (3.4-5.0); Calcium 7.3 mg/dL (8.5-10.1); Potassium 3.2 mmol/L (3.5-5.1)
[2020-08-22 05:28] LABS: Bilirubin, Total 0.3 mg/dL (0.2-1.0)
--- NOTE | 2020-08-22 06:45 | NUR ---
Blood pressure reassessed, now 93/48 mm Hg. No s/s of distress. Will make dayshift RN aware.
[2020-08-22] MEDS: ACCU-CHEK COMFORT CURVE STRIP VI SCH ×4 (06:52→22:36)
[2020-08-22] MEDS: PIPERACILLIN-TAZO 4.5GM 100 ML IV SCH ×3 (06:52→22:08)
[2020-08-22] MEDS: SUCRALFATE 1 GM/10 ML ORAL SUSP PO SCH ×4 (06:52→22:08)
[2020-08-22] MEDS: LACTATED RINGER'S 1,000 ML IV SCH (06:52)
[2020-08-22] MEDS: glipiZIDE 5 MG TAB PO SCH ×2 (06:58→18:00)
[2020-08-22] MEDS: InsuLIN REG 1unit/0.01ml Soln (100units/ml) SC SCH ×4 (06:59→22:37)
--- NOTE | 2020-08-22 07:00 | NUR ---
Closing Note Patient lying in bed, awake and alert. No s/s of distress. Call light within reach. Will endorse care to dayshift RN.
[2020-08-22] MEDS: Glucerna Carbsteady SHAKE Vanilla 8oz PO SCH ×3 (08:00→18:00)
--- NOTE | 2020-08-22 09:13 | NUR ---
DR FUNEZ AT BEDSIDE. MD updating patient and family member on plan of care.
[2020-08-22] MEDS ORDERED: glipiZIDE 5 MG TAB PO ONE (09:15)
[2020-08-22] MEDS ORDERED: POTASSIUM CHL 10 Meq TABLET PO ONE (09:15)
[2020-08-22 09:46] VITALS: BP 101/59
[2020-08-22] MEDS: HYDROcodone-ACET 5/325MG TAB PO PRN (10:31)
[2020-08-22] MEDS: PANTOPRAZOLE 40 MG/10 ML VIAL INJ IV SCH ×2 (10:31→22:08)
[2020-08-22] MEDS: NYSTATIN TOPICAL POWDER 15GM TOP SCH ×2 (10:32→22:09)
--- NOTE | 2020-08-22 11:51 | NUR ---
Stool sample stool sample collected and sent to lab. Patient tolerated well.
[2020-08-22 12:05] VITALS: BP 90/52
[2020-08-22 16:27] VITALS: BP 94/50
--- NOTE | 2020-08-22 19:40 | NUR ---
Opening Shift Note Assumed care of patient, awake and alert, oriented x3. No S/S of distress/SOB or pain. Mom at bedside. Updated mom on POC and to call for assist PRN, mom verbalized understanding. Bed in lowest and locked position, bed alarm on, call light within reach, will continue to monitor for changes Q1hr and PRN.
[2020-08-22 22:00] VITALS: BP 82/43
[2020-08-22] MEDS: MICONAZOLE NITRATE 2 % VAGINAL CREAM 45 GM PV SCH (22:09)
[2020-08-22 22:46] VITALS: BP 91/50
[2020-08-23 05:00] VITALS: BP 89/48
[2020-08-23 05:42] VITALS: BP 90/49
[2020-08-23] MEDS: PIPERACILLIN-TAZO 4.5GM 100 ML IV SCH (05:48)
[2020-08-23] MEDS: SUCRALFATE 1 GM/10 ML ORAL SUSP PO SCH ×4 (05:51→21:02)
[2020-08-23] MEDS: ACCU-CHEK COMFORT CURVE STRIP VI SCH ×4 (06:02→21:02)
[2020-08-23] MEDS: glipiZIDE 5 MG TAB PO SCH ×2 (06:02→18:34)
[2020-08-23] MEDS: InsuLIN REG 1unit/0.01ml Soln (100units/ml) SC SCH ×4 (06:04→21:01)
[2020-08-23] MEDS: LACTATED RINGER'S 1,000 ML IV SCH (06:06)
[2020-08-23 06:20] LABS: Basophils # (auto) 0 10 ^3/uL (0-0.2); Basophils % (auto) 0.6 % (0.0-2.0); Eosinophils # (auto) 0.1 10 ^3/uL (0-0.8); Eosinophils % (auto) 1.5 % (0.0-7.0); Hemoglobin 10.2 g/dL (12.2-16.2); Lymphocytes % (auto) 21.6 % (10.0-50.0); Mean Corpuscular Hemoglobin 29.7 pg (28.0-32.0); Mean Corpuscular Volume 90.2 fL (80.0-100.0); Monocytes # (auto) 0.6 10 ^3/uL (0-1.3); Monocytes % (auto) 12.6 % (0.0-12.0); Neutrophils % (auto) 63.7 % (37.0-80.0); Nucleated Red Blood Cells % 0.1 %; Platelet Count (auto) 205 10^3/uL (140-450); Red Blood Cells 3.44 10^6/uL (4.0-5.20); White Blood Cell 4.8 10^3/uL (4.4-10.8)
[2020-08-23 06:29] LABS: Potassium 3.5 mmol/L (3.5-5.1)
[2020-08-23 06:37] LABS: Albumin 1.4 g/dL (3.4-5.0); BUN/Creatinine Ratio 7.1; Bilirubin, Total 0.2 mg/dL (0.2-1.0); Calcium 7.3 mg/dL (8.5-10.1); Total Protein 5.1 g/dL (6.4-8.2)
--- NOTE | 2020-08-23 07:35 | NUR ---
OPENING NOTE Assumed care of patient from NOC RN. No s/s of distress or sob noted. Bed is in lowest locked position, call light within reach and side rails up x2. Patients mother present at bedside. Updated patient on plan of care and patient unable to verbalize understanding. Patients mother verbalized understanding. Will continue to monitor q1hr and PRN.
[2020-08-23 08:00] VITALS: BP 91/55
[2020-08-23] MEDS: Glucerna Carbsteady SHAKE Vanilla 8oz PO SCH ×3 (10:12→18:30)
[2020-08-23] MEDS: PANTOPRAZOLE 40 MG/10 ML VIAL INJ IV SCH (10:12)
[2020-08-23] MEDS: NYSTATIN TOPICAL POWDER 15GM TOP SCH ×2 (10:12→21:01)
--- NOTE | 2020-08-23 10:27 | NUR ---
WOUND CARE NOTE: WOUND CARE IN TO SEE PATIENT FOR SKIN INTEGRITY MONITORING. PATIENT'S INTERTRIGO TO RIGHT AXILLA AND MEDIAL ABDOMINAL FOLDS HAS RESOLVED. MASD/INTERTRIGO TO LABIAL SKIN IS RESOLVING. ANTIFUNGAL BARRIER CREAM APPLIED TO AFFECTED SKIN AREA. RECOMMEND: FREQUENT Q2HOUR REPOSITIONING CONDITION PERMITS. REDISTRIBUTE PRESSURE UTILIZING PILLOWS AND WEDGES. CONTINUATION OF WOUND CARE ORDERS PRESCRIBED BY MD. CONTINUE WITH SKIN/WOUND CARE PLAN. CONTINUED MONITORING BY WOUND CARE TEAM. Addendum: 08/23/20 at 1403 by TOMER THOMSON RN RN Amended: Links added.
[2020-08-23 12:00] VITALS: BP 94/50
--- NOTE | 2020-08-23 12:00 | NUR ---
physician rounding Dr. Cole at bedside. MD updated patient and patient family member on plan of care, patient family verbalized understanding. Per MD patient is possible D/C tomorrow. No new orders received, will continue care.
[2020-08-23] MEDS ORDERED: metFORMIN HYDROCHLORIDE 500 MG TAB PO ONE (12:45)
--- NOTE | 2020-08-23 15:17 | NUR ---
CALL FROM MICRO PER MICRO STOOL SPECIMEN WAS NOT ABLE TO BE READ TO PRODUCE RESULTS. PER MICRO ANOTHER STOOL SAMPLE WILL BE REQUIRED WITH ORDER. WILL NOTIFY ,.
--- NOTE | 2020-08-23 15:20 | NUR ---
NOTIFIED Dr. Cole notified of stool sample. Per MD no new order is needed, stated "if she has another water loose stool send the sample. otherwise if stool is not loose and watery it is okay, dont reorder." Will follow through.
[2020-08-23 17:00] VITALS: BP 127/70
[2020-08-23] MEDS: metFORMIN HYDROCHLORIDE 500 MG TAB PO SCH (17:39)
[2020-08-23] MEDS: HYDROcodone-ACET 5/325MG TAB PO PRN (19:59)
[2020-08-23] MEDS: PANTOPRAZOLE 40 MG TAB PO SCH (21:02)
--- NOTE | 2020-08-23 22:00 | NUR ---
hospitalist Called/paged hospitalist called re:bowel movement . Waiting for call back. Continue care.
[2020-08-23 22:13] VITALS: BP 91/48
--- NOTE | 2020-08-23 22:15 | NUR ---
hospitalist returned call hospitalist returned call, updated on patient status and reason for call, new orders received and read back verify by hospitalist marika . Continue care.
[2020-08-23] MEDS ORDERED: LOPERAMIDE HCL 2 MG CAP PO PRN (22:45)
--- NOTE | 2020-08-24 01:30 | NUR ---
noticed pt has not urinated since the start of my shift only 25 ml of urine noted in Booth bag. Performed a bladder scan showing 200 ml. flushed and repositioned Booth, more out from pt Booth noted total out put of 300ml. performed bladder scan again it showed 41 ml . PT mom translated for pt and stated "pt feel better" will pg hospitalist and Continue monitoring
[2020-08-24 05:00] VITALS: BP 88/43
[2020-08-24] MEDS: InsuLIN REG 1unit/0.01ml Soln (100units/ml) SC SCH ×2 (05:27→12:25)
[2020-08-24] MEDS: ACCU-CHEK COMFORT CURVE STRIP VI SCH ×2 (05:28→12:13)
[2020-08-24] MEDS: glipiZIDE 5 MG TAB PO SCH (05:28)
[2020-08-24] MEDS: SUCRALFATE 1 GM/10 ML ORAL SUSP PO SCH ×2 (05:28→11:07)
--- NOTE | 2020-08-24 06:01 | NUR ---
hospitalist Called/paged hospitalist called re:Booth/urology consult . Waiting for call back. Continue care.
--- NOTE | 2020-08-24 07:20 | NUR ---
OPENING NOTE Assumed care of patient from NOC SANTOS Tinoco. No s/s of distress or sob noted. Bed is in lowest locked position, call light within reach and side rails up x2. Patients mother present at bedside. Updated patient on plan of care and patient unable to verbalize understanding. Patients mother verbalized understanding. Will continue to monitor q1hr and PRN.
[2020-08-24] MEDS: metFORMIN HYDROCHLORIDE 500 MG TAB PO SCH (08:22)
[2020-08-24] MEDS: NYSTATIN TOPICAL POWDER 15GM TOP SCH (08:22)
[2020-08-24] MEDS: PANTOPRAZOLE 40 MG TAB PO SCH (08:22)
[2020-08-24] MEDS: Glucerna Carbsteady SHAKE Vanilla 8oz PO SCH ×2 (08:40→12:12)
[2020-08-24 09:00] VITALS: BP 111/53
--- NOTE | 2020-08-24 09:55 | NUR ---
physician rounding Dr. Cole at bedside. MD updated patient and patients Aunt at bedside. New orders received, will follow through.
--- NOTE | 2020-08-24 10:00 | NUR ---
Lopez catheter dc'd Order to discontinue lopez catheter. Lopez dc'd with clean technique following deflation of balloon. Patient tolerated well with no complaints of pain. Continue care.
--- NOTE | 2020-08-24 10:10 | NUR ---
physician rounding Dr. Martinez at nurses station. Updated MD on patient status, no new orders received. Will continue care.
[2020-08-24] MEDS ORDERED: INSULIN LANTUS (GLARGINE) 1 /0.01ml (100units/ml) SC ONE (10:15)
[2020-08-24] MEDS ORDERED: PANT40T PO (10:16)
[2020-08-24] MEDS ORDERED: SUCR1TAB22 OR (10:16)
[2020-08-24] MEDS ORDERED: METF-370 PO (10:16)
--- NOTE | 2020-08-24 10:55 | NUR ---
Nutrition Followup Notes Wt: 98.3 kg Pt was with MD and family at bedside at time of rounds. Pt is currently on CCHO 45g, 2g Na pureed with Glucerna 1 carton tid. pt with fair PO avg 60% x 4 per RN doc Est energy needs 3367-2353 kcal (14-18 kcal/kg BW 92.4kg) Est protein needs 43-56g (1-1.3g/kg IBW 43kg) Will reassess prn LABS: GLU 227 H GI: Pt had 5 BMs today per RN doc. BS: 19 low risk. Refer to wound assessment report for full details. PES: Obesity aeb pt with a BMI of 42.6kg/m2 r/t caloric intake in excess of needs Partially resolved: Inadequate oral intake aeb pt with NPO diet order r/t current medical condition Comments: Will continue to monitor PO intake, skin status, pertinent labs and weight trends. Will f/u in 3-5 days Rec: 1) consider prostat 1 packet bid. 2) refer pt to [facility] on DC 3) Continue current plan of care
--- NOTE | 2020-08-24 12:20 | NUR ---
physician rounding dr. engel at nurses station. Per MD patient is clear for D/C, and D/C IJ. Will follow through.
[2020-08-24] MEDS ORDERED: GLIP10TA9 PO (12:34)
[2020-08-24 13:00] VITALS: BP 106/63
[2020-08-24 13:40] VITALS: BP 112/63
[2020-08-24] MEDS ORDERED: guaiFENesin-DM 100/10mg/5ml SYR PO ONE (15:00)
--- NOTE | 2020-08-24 15:48 | NUR ---
Discharge note Discharge instructions given as ordered. Encourage to follow up with PMD as instructed. All questions and concerns addressed. Patient verbalized understanding. IV removed with catheter intact, pressure dressing applied. Telemetry unit returned to ICU. Patient taken to vehicle via wheelchair with all personal belongings, accompanied by staff and family member. No distress noted at time of departure.
== END 2020-08-24 15:35 | disposition home or self-care (01) | DRG 420 ==
LOC: ER 07:50 → OBSVTOIN 07:51 → OVERFLOW 07:51 → ICU WEST 08-15 10:32 → TELE-CENTR 08-16 02:03
PROVIDERS: ADMIT Nurse Practitioner Acute Care; ATTEND Internal Medicine
PROC: 02H633Z Insertion of Infusion Device into Right Atrium, Percutaneous Approach (ICD-10-PCS; principal; 2020-08-14)
DX: E11.10 Type 2 diabetes mellitus with ketoacidosis without coma (principal); K85.90 Acute pancreatitis without necrosis or infection, unspecified; N17.0 Acute kidney failure with tubular necrosis; E43 Unspecified severe protein-calorie malnutrition; B37.3 Candidiasis of vulva and vagina; N30.90 Cystitis, unspecified without hematuria; L30.9 Dermatitis, unspecified; N18.9 Chronic kidney disease, unspecified; E11.8 Type 2 diabetes mellitus with unspecified complications; E87.6 Hypokalemia; E87.0 Hyperosmolality and hypernatremia; E11.21 Type 2 diabetes mellitus with diabetic nephropathy; E88.09 Other disorders of plasma-protein metabolism, not elsewhere classified; E11.22 Type 2 diabetes mellitus with diabetic chronic kidney disease; E66.01 Morbid (severe) obesity due to excess calories; K76.0 Fatty (change of) liver, not elsewhere classified; Z90.49 Acquired absence of other specified parts of digestive tract; Q90.9 Down syndrome, unspecified; Z79.899 Other long term (current) drug therapy; Z79.01 Long term (current) use of anticoagulants; Z79.84 Long term (current) use of oral hypoglycemic drugs; Z68.41 Body mass index [BMI] 40.0-44.9, adult
CPT/HCPCS: 36415; 51702; 71045; 74176; 76705; 80048; 80053; 80061; 81001; 82010; 82150; 82962; 83036; 83605; 83690; 83735; 84100; 84132; 84443; 84484; 84702; 85025; 87040; 87081; 87086; 96361; 96365; 96366; 96368; 96375; 97116; 97163; C9113; G0378; J0696; J1815; J2001; J2405; J2543; J3490